=== PATIENT | male | born 1990 | race Caucasian/White ===

== ENCOUNTER 2020-01-16 15:05 | Emergency (ER) | payer BC, OTHER ==
[~2020-01-16] VITALS: Ht 182.9 cm; Wt 83.9 kg
[2020-01-16] MEDS ORDERED: ADDERALL 10 MG10 MG PO (15:09)
[2020-01-16 16:34] LABS: ABSOLUTE NEUTROPHILS 9.5 thou/uL (1.4-8.2); BASOPHILS 0.5 % (0.0-2.0); EOSINOPHILS 0.7 % (0.0-3.0); HEMATOCRIT 45.6 % (42.0-52.0); HEMOGLOBIN 15.2 gm/dL (14.0-18.0); MCH 31.7 pg (26.0-34.0); MCHC 33.4 g/dL (28.0-37.0); MONOCYTES 5.8 % (1.0-8.0); PLATELET COUNT 331 thou/uL (150-400); RBC 4.79 mil/uL (4.50-6.00); RDW 14.3 % (10.5-14.5); WBC 13.4 thou/uL (4.0-11.0)
[2020-01-16 16:40] LABS: ANION GAP 12 mmol/L (7-16); BUN 12 mg/dL (7-18); CALCIUM 9.2 mg/dL (8.5-10.1); CHLORIDE 99 mmol/L (98-107); CO2 29 mmol/L (21-32); CREATININE 1.2 mg/dL (0.7-1.3); GLUCOSE 98 mg/dL (74-106); POTASSIUM 3.6 mmol/L (3.5-5.1); SODIUM 140 mmol/L (136-145)
[2020-01-16 16:50] LABS: ALBUMIN 4.3 g/dL (3.4-5.0); SGOT 21 U/L (15-37); SGPT 23 U/L (30-65); TOTAL BILIRUBIN 0.5 mg/dL (0.2-1.0); TOTAL PROTEIN 8.3 g/dL (6.4-8.2); TROPONIN-I <0.06 ng/mL (<0.06)
[2020-01-16 18:17] VITALS: BP 145/100
== END 2020-01-16 18:17 | disposition home or self-care (01) ==
LOC: ER 15:05
PROVIDERS: Emergency Medicine
DX: R00.0 Tachycardia, unspecified (principal); R07.89 Other chest pain; R06.02 Shortness of breath; R42 Dizziness and giddiness; R53.1 Weakness; R51.9 Headache, unspecified; Z20.828 Contact with and (suspected) exposure to other viral communicable diseases; J45.909 Unspecified asthma, uncomplicated; F90.9 Attention-deficit hyperactivity disorder, unspecified type; Z79.899 Other long term (current) drug therapy

== ENCOUNTER 2021-01-02 11:21 | Emergency (ER) | payer BC, OTHER ==
[~2021-01-02] VITALS: Ht 182.9 cm; Wt 84.8 kg
--- NOTE | ~2021-01-02 | EMS ---
[facility] [address] [place] [address] EMS Patient Care Report Name: CHELLY YANEZ Room #: REG LOYDA Leos#: [id number] Admission: 01/02/21 Attend Phys: Discharge: Date of : [birth year] Report #: [id number] THIS REPORT FOR: //name// Report Transmitted: 01/02/2021 11:27 EMS Care Summary [place], [place]/[facility] Incident [id number] @ 01/02/2021 10:50 Incident Location [address] [place] [address] Patient CHELLY YANEZ Male, 30 Years 1990 Patient Address [address] [place] [address] Patient History Alcohol Abuse, Patient Allergies No known allergies, Patient Medications Adderall, Chief Complaint ALCOHOL WITHDRAWALS Disposition Transported No Lights/[place] Dispatch Reason Chest Pain (Non-Traumatic) Transported To [facility] Narrative UPON ARRIVAL PT SITTING RECLINED ON EXAM TABLE AT URGENT CARE, CONSICOUS AND ALERT. PT APPEARS PALE WITH OBVIOUS TREMORS. PT CAME TO URGENT CARE TO GET HELP WITH ALCOHOL WITDRAWALS. PT LAST DRANK ON THURSDAY. DR WAS WORRIED ABOUT KIDNEY [facility] [address] [place] [address] EMS Patient Care Report Name: CHELLY YANEZ Room #: REG LOYDA Vance.#: [id number] Admission: 01/02/21 Attend Phys: Discharge: Date of : [birth year] Report #: [id number] ISSUES SINCE PT HASN'T URINATED FOR OVER A DAY. DR ALSO CONCERNED ABOUT POSSIBLE SEIZURES. PT ASSISTED TO COT AND TRANSPORTED TO [facility]. Initial Vitals @11:08P: 124,R: 24,BP: 148/91,Pain: 0/10,GCS: 15,CO: 0,SpO2: 98,Revised Trauma: 12, @11:16P: 112,R: 20,BP: 149/104,GCS: 15,CO: 1,SpO2: 98,Revised Trauma: 12, @PTAP: 126,R: 16,BP: 171/107,GCS: 15,Glucose: 104,SpO2: 99,Revised Trauma: 12, Assessments @11:02MENTAL:Time Oriented,Place Oriented,Event Oriented,Person Oriented,SKIN:Pale,HEENT:Head/Face: No Abnormalities,Neck/Airway: No Abnormalities,LUNG SOUNDS:General: Nausea,ABDOMEN:General: Nausea,PELVIS//GI:EXTREMITIES:Left Arm: No Abnormalities,Right Arm: No Abnormalities,Left Leg: No Abnormalities,Right Leg: No Abnormalities,PULSE:Radial: 2+ Normal,NEURO:Tremors, Impression Alcohol dependence with withdrawal Procedures @11:02 ALS Assessment Response: UnchangedSucceeded @11:10 3-Lead ECG Response: UnchangedSucceeded @PTAIV Therapy - Saline Lock 10cc (20 ga) Site: Antecubital-Right Response: UnchangedSucceeded @PTAOxygen FlowRate: 2 Device: Nasal Cannula (NC) Response: UnchangedSucceeded Timeline HARBOR TUG CAPTAIN,IV Therapy - Saline Lock 10cc 20 ga Site: Antecubital-Right,Response: UnchangedSucceeded, HARBOR TUG CAPTAIN,Oxygen FlowRate: 2 Device: Nasal Cannula (NC) Response: UnchangedSucceeded, HARBOR TUG CAPTAIN,BP: 171/107 M,PULSE: 126,RR: 16 R,SPO2: 99 Ox,ETCO2: ,B,PAIN: ,GCS: 15, 10:48,Call Received 10:48,Dispatch Notified 10:50,Dispatched 10:51,En Route 11:00,On Scene 11:01,At Patient 11:02,ALS Assessment,Response: UnchangedSucceeded, 11:08,BP: 148/91 M,PULSE: 124,RR: 24 R,SPO2: 98 Ox,ETCO2: ,BG: ,PAIN: 0,GCS: 15, 11:10,3-Lead ECG,Response: UnchangedSucceeded, 11:10,Depart Scene 11:16,BP: 149/104 M,PULSE: 112,RR: 20 R,SPO2: 98 Ox,ETCO2: ,BG: ,PAIN: ,GCS: [address] [address] EMS Patient Care Report Name: CHELLY YANEZ GREGOR Room #: REG LOYDA Chris.R.#: [id number] Admission: 01/02/21 Attend Phys: Discharge: Date of : [birth year] Report #: [id number] 15, 11:18,At Destination 11:40,Call Closed Disclaimer [email or web address] Copyright 2020 [employer] This EMS Care Summary contains data elements from the applicable legal record (which may be displayed differently). It is designed to provide pertinent information for the following purposes: continuity of care, clinical quality, and state data reporting. The complete legal record is available to ED staff and administrators of the receiving hospital in [employer]'s Patient Tracker. All data is provided "as is."
[~2021-01-02 11:21] MED LIST: ADDERALL 10 MG10 MG PO
[2021-01-02] MEDS ORDERED: ADDERALL 10 MG10 MG PO (11:36)
[2021-01-02] MEDS ORDERED: CHLORDIAZEPOXID25 M1 PO (13:25)
[2021-01-02 14:01] VITALS: BP 141/94
== END 2021-01-02 14:03 | disposition home or self-care (01) ==
LOC: ER 11:21
DX: F10.239 Alcohol dependence with withdrawal, unspecified (principal); Z79.899 Other long term (current) drug therapy